=== PATIENT | male | born 1965 | race Two or more races ===

== ENCOUNTER 2024-07-26 07:13 | Day surgery (SDC) | payer OTHER ==
[2024-07-26] MEDS ORDERED: propofoL 500 MG/50 ML 50 ML ONE (07:24)
[2024-07-26] MEDS ORDERED: Lidocaine 2% 5 ML SDV ONE (07:24)
[2024-07-26] MEDS: Lactated Ringers 1,000 ML IV SCH (07:57)
[2024-07-26] MEDS ORDERED: Propofol 200 MG/20 ML SDV ONE (09:32)
== END 2024-07-26 10:55 | disposition home or self-care (01) ==
LOC: MW.SDS 07:13
PROVIDERS: ATTEND Surgery
DX: K29.50 Unspecified chronic gastritis without bleeding (principal); K20.0 Eosinophilic esophagitis; K31.89 Other diseases of stomach and duodenum; K57.30 Diverticulosis of large intestine without perforation or abscess without bleeding; K64.8 Other hemorrhoids; E11.9 Type 2 diabetes mellitus without complications; K21.9 Gastro-esophageal reflux disease without esophagitis; I10 Essential (primary) hypertension; G47.30 Sleep apnea, unspecified; Z87.891 Personal history of nicotine dependence; Z79.899 Other long term (current) drug therapy
CPT/HCPCS: 43239; 45380; J2003; J2704; J7120; 00813